=== PATIENT | male | born 1975 | race Hispanic/Latino ===

== ENCOUNTER 2020-01-29 21:22 | Emergency (ER) | payer OTHER ==
[2020-01-29] MEDS ORDERED: levETIRAcetam in NS 100 ML ONE (21:44)
== END 2020-01-29 23:19 | disposition home or self-care (01) ==
LOC: ERS 21:22 → EEVIPCON 21:22 → ERS 23:19
DX: R56.9 Unspecified convulsions (principal)
CPT/HCPCS: 94760; 96365; J1953